=== PATIENT | female | born 1995 | race African-American/Black ===

== ENCOUNTER → 2016-10-30 | Day surgery (SDC) | payer OTHER ==
[~2016-10-30] MED LIST: NO MEDICATIONS
--- NOTE | ~2016-10-30 | OR ---
Unit #: [id number] #: [id number] Patient: SUHAIL GALVAN [id number] [address] [address] [id number] O MR#: [id number] NAME: SUHAIL GALVAN ROOM: Date of Procedure: 10/30/2016 Admission Date: 10/30/2016 Surgeon: Doug Lundy M.D. : 1995 Attending Physician: Doug Lundy M.D. OPERATIVE REPORT PREOPERATIVE DIAGNOSES The patient presented with a history of anorexia and weight loss as well as history of [id number] lower quadrant abdominal pain. PROCEDURES PERFORMED Upper gastrointestinal endoscopy and biopsy as well as colonoscopy up to terminal ileum. POSTOPERATIVE DIAGNOSES For upper endoscopy: 1. Small hiatus hernia. 2. Distal esophageal Schatzki ring. The latter was felt to be wide open, not requiring any intervention. 3. Mild prepyloric antral gastritis. This was primarily in the form of erythema. 4. Rest of the examination up to third part of duodenum was normal. A biopsy was obtained from the antrum for CLOtest. For colonoscopy: 1. Completely normal examination up to cecum and terminal ileum with excellent preparation and good visualization. RECOMMENDATIONS The patient will be followed up in the office in 6 to 8 weeks' time. We will see if she needs any CT scan of the abdomen and pelvis if her weight loss is unabated. It is noteworthy that she is obese to start with. SEDATION USED MAC. DESCRIPTION OF PROCEDURE Following detailed explanation of potential risks and complications of an upper endoscopy and a colonoscopy, namely perforation, bleeding, and complications related to sedation, the patient was brought to GI lab and laid in the left lateral decubitus position. Lubricated tip of the Olympus video upper endoscope was passed through bite block into the proximal esophagus under direct vision. The entire esophageal mucosa was examined. The patient was noted to have distal esophageal Schatzki ring. The latter was felt to be wide open, not requiring dilation. The scope was then advanced into the gastric cavity and the latter was insufflated. Mucosa of the fundus, body, and antrum examined and mild antral erythema Unit #: [id number] #: [id number] Patient: SUHAIL GALVAN was noted indicating antral gastritis. Pylorus was intubated with visualization of normal duodenal bulb and second and third part of the duodenum. Upon withdrawal and retroflexion, incisura, cardia, and greater curve were examined and no additional findings noted. A biopsy was obtained from the antrum for CLOtest. The scope was then withdrawn into the distal esophagus. The entire esophageal mucosa was examined all the way up to pharynx. No additional findings noted. The examination table was then turned by 180 degrees and the patient was positioned for a colonoscopy. A digital rectal examination was performed, which was normal. Lubricated tip of the Olympus video colonoscope was inserted through the anus and advanced under direct vision. The scope was then passed up to sigmoid into descending colon. No diverticula were noted in this area. The scope tip was then navigated all the way up to cecum with visualization of the ileocecal valve and the appendiceal orifice. Preparation was excellent with good visualization and photodocumentation was obtained. Last several inches of the terminal ileum also visualized after intubation of the ileocecal valve and appeared normal. Successive segments of the colonic mucosa were examined upon withdrawal and appeared unremarkable. There being no polyps, mass lesions, AVMs, or diverticula. The patient did not have any hemorrhoids at anal verge. The scope was then withdrawn. The patient returned to the recovery area. She tolerated the procedure without any postprocedure complications. Dictated by... Katerine Ramirez/melany TD: 10/31/2016 05:53 JOB #: [id number] OPERATIVE REPORT Page 1 of 1 X Doug Lundy MD X PROCEDURE OPERATIVE NOTE
== END | disposition home or self-care (01) ==
LOC: COPS 12:28 → EDSEX 14:00 → COPS 14:00
DX: K29.70 Gastritis, unspecified, without bleeding (principal); K22.2 Esophageal obstruction; K44.9 Diaphragmatic hernia without obstruction or gangrene; E66.9 Obesity, unspecified; J45.909 Unspecified asthma, uncomplicated; Z91.013 Allergy to seafood; Z68.38 Body mass index [BMI] 38.0-38.9, adult
CPT/HCPCS: 84703; 87077